=== PATIENT | male | born 1960 | race Caucasian/White ===

== ENCOUNTER 2018-06-29 10:58 | Emergency (ER) | payer OTHER ==
--- NOTE | 2018-06-29 12:02 | RAD REPORT ---
EXAM DESCRIPTION: CT - Head Brain Wo Cont - 06/29/2018 11:54 am CLINICAL HISTORY: Confused;Headache COMPARISON: No comparisons TECHNIQUE: All CT scans are performed using dose optimization technique as appropriate and may inclu de automated exposure control or mA/KV adjustment according to patient size. FINDINGS: No intracranial hemorrhage, hydrocephalus or extra-axial fluid collection.No areas of brai n edema or evidence of midline shift. The paranasal sinuses and mastoids are clear except for a small amount hyperdense material in the inf erior left maxillary antrum. The calvarium is intact. IMPRESSION: No acute intracranial abnormality.
[2018-06-29 12:36] LABS: Absolute Lymphocytes (CBC) 0.9 K/uL (0.7-4.9); Absolute Monocytes 0.4 K/uL (0.1-1.3); Absolute Neutrophil 7.6 K/uL (1.8-8.0); Basophils % 0.7 % (0-1.3); Eosinophils % 1.6 % (0-4.4); Hematocrit 53.7 % (39.6-49.0); Lymphocytes % 10.2 % (15.3-44.8); MCH 25.3 pg (27.0-35.0); MCV 75.6 fL (80-100); MPV 8.5 fL (7.6-11.3); Monocytes % 4.8 % (3.3-12.3)
[2018-06-29 12:37] LABS: Protime INR 1.22
--- NOTE | 2018-06-29 12:47 | RAD REPORT ---
EXAM DESCRIPTION: RAD - Chest Single View - 06/29/2018 12:25 pm CLINICAL HISTORY: COUGH Chest pain. COMPARISON: ABDOMEN 1 VIEW KUB dated 02/17/2015 FINDINGS: Portable technique limits examination quality. The lungs are grossly clear. The heart is normal in size. No displaced fractures. IMPRESSION: No acute intrathoracic process suspected.
[2018-06-29 12:55] LABS: ALT/SGPT 31 U/L (12-78); AST/SGOT 22 U/L (15-37); Albumin 3.4 g/dL (3.4-5.0); Alkaline Phosphatase 191 U/L (45-117); BUN Blood Urea Nitrogen 11 mg/dL (7-18); Bicarbonate 28 mmol/L (21-32); Bilirubin Direct 0.2 mg/dL (0-0.2); Bilirubin Total 0.8 mg/dL (0.2-1.0); Glucose Level 93 mg/dL (74-106); Magnesium 2.4 mg/dL (1.8-2.4); NT PRO-BNP 16 pg/mL (<125); Protein, Total 6.9 g/dL (6.4-8.2); Sodium Level 140 mmol/L (136-145); Troponin (Emerg Dept Use Only) < 0.02 ng/mL (0.0-0.045)
[2018-06-29] MEDS ORDERED: ASPIRIN 81 MG CHEWABLE TABLET ONE (13:18)
[2018-06-29 13:50] LABS: Barbiturates NEGATIVE (NEGATIVE); Benzodiazepines NEGATIVE (NEGATIVE); Cocaine NEGATIVE (NEGATIVE); METHAMPHETAM NEGATIVE (NEGATIVE); Methadone NEGATIVE (NEGATIVE); Opiates NEGATIVE (NEGATIVE); Phencyclidine NEGATIVE (NEGATIVE); THC Cannibis NEGATIVE (NEGATIVE)
--- NOTE | 2018-06-29 14:11 | ER ---
Nurse's Notes [facility] Name: Amadeo Simpson Age: 58 yrs Sex: Male : 1960 Arrival Date: 06/29/2018 Time: 11:01 Bed 20 Private MD: Jayme Dunham B Diagnosis: Paresthesia of skin;Weakness;Headache Presentation: 06/29 11:08 Presenting complaint: Patient states: Reports intermittent Right arm pain after arm sg wrestling several months ago, reports having elevated RBC's, pt states that he is unable to finish his thoughts and pt family member states that this has just been getting worse. These symptoms have started months ago, was evaluated by his PCP and told that his blood is thick and that it is concerning so he was referred to a administrative operations coordinator but has not been able to schedule the appointment yet. Transition of care: patient was not received from another setting of care. Onset of symptoms was June 29, 2018. Risk Assessment: Do you want to hurt yourself or someone else? Patient reports no desire to harm self or others. Initial Sepsis Screen: Does the patient meet any 2 criteria? No. Patient's initial sepsis screen is negative. Does the patient have a suspected source of infection? No. Patient's initial sepsis screen is negative. Care prior to arrival: None. 11:08 Method Of Arrival: Ambulatory sg 11:08 Acuity: WAI 3 sg Historical: - Allergies: 11:11 No Known Allergies; sg - Home Meds: 11:11 None [Active]; sg - PMHx: 11:11 Hiatal Hernia; sg - PSHx: 11:11 Appendectomy; Tonsillectomy; sg - Immunization history:: Adult Immunizations unknown. - Social history:: Smoking status: Patient/guardian denies using tobacco. - Ebola Screening: : Patient negative for fever greater than or equal to 101.5 degrees Fahrenheit, and additional compatible Ebola Virus Disease symptoms Patient denies exposure to infectious person Patient denies travel to an Ebola-affected area in the 21 days before illness onset No symptoms or risks identified at this time. Screenin:48 Abuse screen: Denies threats or abuse. Nutritional screening: No deficits noted. em Tuberculosis screening: No symptoms or risk factors identified. Fall Risk None identified. Assessment: 11:48 General: Appears in no apparent distress. comfortable, Behavior is calm, cooperative. em Pain: Complains of pain in behind left eye Pain currently is 4 out of 10 on a pain scale. Pain began 3-4 weeks. Neuro: Level of Consciousness is awake, alert, obeys commands, Oriented to person, place, time, situation, Special Machine Stitcher are equal bilaterally Moves all extremities. Gait is steady, Speech with expressive aphasia noted, Facial droop on right, Numbness in right hand. Cardiovascular: Denies chest pain, Heart tones S1 S2 present Capillary refill < 3 seconds Patient's skin is warm and dry. Respiratory: Airway is patent Respiratory effort is even, unlabored, Respiratory pattern is regular, symmetrical, Breath sounds are clear bilaterally. GI: Abdomen is flat, Patient currently denies nausea, vomiting. : No signs and/or symptoms were reported regarding the genitourinary system. EENT: No signs and/or symptoms were reported regarding the EENT system. Derm: Skin is intact, Skin is pink, warm \T\ dry. Musculoskeletal: Capillary refill < 3 seconds, Range of motion: intact in all extremities. 12:00 Reassessment: Patient appears in no apparent distress at this time. I agree with above iw assessment by Urbano Ivan LVN. 12:40 Reassessment: Patient appears in no apparent distress at this time. Patient and/or em family updated on plan of care and expected duration. Pain level reassessed. Patient is alert, oriented x 3, equal unlabored respirations, skin warm/dry/pink. 13:30 Reassessment: Patient appears in no apparent distress at this time. Patient and/or em family updated on plan of care and expected duration. Pain level reassessed. Patient is alert, oriented x 3, equal unlabored respirations, skin warm/dry/pink. pt ambulated to the restroom for urine specimen with steady gate, denies pain. 14:17 Reassessment: Patient appears in no apparent distress at this time. Patient and/or em family updated on plan of care and expected duration. Pain level reassessed. Patient is alert, oriented x 3, equal unlabored respirations, skin warm/dry/pink. Vital Signs: 11:12 BP 152 / 92; Pulse 67; Resp 17; Temp 98.2; Pulse Ox 99% on R/A; Weight 79.38 kg; Height sg 5 ft. 10 in. (177.80 cm) (R); Pain 4/10; 12:16 BP 133 / 86; Pulse 57; Resp 16; Pulse Ox 95% on R/A; Pain 0/10; em 13:32 BP 131 / 85; Pulse 61; Resp 16; Pulse Ox 98% on R/A; Pain 0/10; em 14:17 BP 139 / 83; Pulse 60; Resp 18; Pulse Ox 98% on R/A; mh5 11:12 Body Mass Index 25.11 (79.38 kg, 177.80 cm) ED Course: 11:01 Patient arrived in ED. mr 11:01 Jayme Dunham MD is Private Physician. mr 11:11 Triage completed. sg 11:11 Arm band placed on. EKG completed in triage. Results shown to MD. sg 11:15 Tiffanie Deal NP is PHCP. rh1 11:15 Hardik Dumont MD is Attending Physician. rh1 11:23 Urbano Ivan LVN is Primary Nurse. em 11:48 Patient has correct armband on for positive identification. Placed in gown. Bed in low em position. Call light in reach. Side rails up X2. Adult w/ patient. 11:54 CT Head Brain wo Cont In Process Unspecified. EDMS 12:15 Initial lab(s) drawn, by me, sent to lab. Inserted saline lock: 20 gauge in right em forearm, using aseptic technique. Blood collected. 12:25 X-ray completed. Portable x-ray completed in exam room. Patient tolerated procedure tm4 well. 12:25 XRAY Chest (1 view) In Process Unspecified. EDMS 14:09 Jayme Dunham MD is Referral Physician. rh1 14:10 Devin Sahu MD is Referral Physician. rh1 14:10 Bakari Denise MD is Referral Physician. rh1 14:26 No provider procedures requiring assistance completed. IV discontinued, intact, em bleeding controlled, No redness/swelling at site. Pressure dressing applied. Administered Medications: 13:15 Drug: Aspirin Chewable Tablet 324 mg Route: PO; em 13:30 Follow up: Response: No adverse reaction em Outcome: 14:10 Discharge ordered by MD. rh1 14:26 Discharged to home ambulatory, with family. em 14:26 Condition: good 14:26 Discharge instructions given to patient, family, Instructed on discharge instructions, follow up and referral plans. Demonstrated understanding of instructions, follow-up care. 14:27 Patient left the ED. em Signatures: Dispatcher [employer] Brian Gallardo, JOHN LOPEZ Eliza Yung Tracy tm4 Urbano Ivan, FSR FSR em Lynne Lal RN RN iw Jones, Rachel, NP ENTRY LEVEL ASSISTANT MANAGER [facility] [place], [place] [id number] Corrections: (The following items were deleted from the chart) 12:57 11:48 Neuro: Level of Consciousness is awake, alert, obeys commands, Oriented to em person, place, time, situation, Special Machine Stitcher are equal bilaterally Moves all extremities. Gait is steady, Facial droop on right, Numbness in right hand em
--- NOTE | 2018-06-29 14:11 | EDPHYS ---
Physician Documentation [facility] Name: Amadeo Simpson Age: 58 yrs Sex: Male : 1960 Arrival Date: 06/29/2018 Time: 11:01 Bed 20 Private MD: Jayme Dunham B ED Physician Hardik Dumont HPI: 06/29 11:15 This 58 yrs old Male presents to ER via Ambulatory with complaints of rh1 Confusion, Memory Loss, Arm Pain. 11:15 The patient's problem is reported as altered mental status, decreased responsiveness, rh1 paresthesias, in right upper extremity, weakness, in the right upper extremity. Onset: The symptoms/episode began/occurred this morning, at 06:00. Duration: The episodes are intermittent. Context: symptoms became apparent upon waking, occurred at home. The symptoms are alleviated by nothing. The symptoms are aggravated by nothing. Associated signs and symptoms: Pertinent positives: confusion, headache, numbness, weakness, Pertinent negatives: abdominal pain, agitation, ataxia, blurred vision, chest pain, diaphoresis, diarrhea, dizziness, lightheadedness, nausea, seizure, shortness of breath, tingling, vertigo, vomiting. Severity of symptoms: At their worst the symptoms were moderate in the emergency department the symptoms have resolved. The patient has experienced similar episodes in the past. The patient has been recently seen by a physician: 1 week(s) ago. He awoke this am at 0600 with right arm numbness and weakness. 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 He reports similar symptoms ongoing for the past 3 months. He arm wrestled another man 3 months ago, and immediately afterward had numbness and pain in the arm. With onset of symptoms several months ago, he was seen by his PCP, per had thorough "stroke" examination in the office, didn't see any evidence of stroke at the time, and they thought symptoms were possibly due to a pinched nerve. Hx of hemochromatosis, and recently referred to Dr. Cummings for possible polycythemia.. Historical: - Allergies: 11:11 No Known Allergies; sg - Home Meds: 11:11 None [Active]; sg - PMHx: 11:11 Hiatal Hernia; sg - PSHx: 11:11 Appendectomy; Tonsillectomy; sg - Immunization history:: Adult Immunizations unknown. - Social history:: Smoking status: Patient/guardian denies using tobacco. - Ebola Screening: : Patient negative for fever greater than or equal to 101.5 degrees Fahrenheit, and additional compatible Ebola Virus Disease symptoms Patient denies exposure to infectious person Patient denies travel to an Ebola-affected area in the 21 days before illness onset No symptoms or risks identified at this time. ROS: 11:15 Constitutional: Negative for fever, chills rh1 11:15 Eyes: Negative for acute changes, reports difficulty vision in December and see by opthamology, given eye drops. 11:15 ENT: Positive for nasal discharge, sinus congestion. 11:15 Neck: Negative for pain with movement, pain at rest. 11:15 Cardiovascular: Negative for chest pain, edema, palpitations. 11:15 Respiratory: Negative for cough, shortness of breath, wheezing. 11:15 Abdomen/GI: Negative for abdominal pain, nausea, vomiting, and diarrhea. 11:15 Back: Negative for decreased range of motion, pain at rest, pain with movement, radiated pain. 11:15 MS/extremity: Positive for decreased range of motion, paresthesias, Negative for swelling, tenderness, tingling. 11:15 Skin: Negative for diaphoresis, discoloration, pallor, rash. 11:15 Neuro: Positive for altered mental status, headache, numbness, weakness, Negative for dizziness, gait disturbance. Exam: 11:15 Radiologist reports: no acute findings rh1 11:15 Constitutional: This is a well developed, well nourished patient who is awake, alert, and in no acute distress. 11:15 Neck: Trachea midline, and no cervical lymphadenopathy. Supple, full range of motion without nuchal rigidity. No Meningismus. Chest/axilla: Normal chest wall appearance and motion. Nontender with no deformity. No lesions are appreciated. Cardiovascular: Regular rate and rhythm with a normal S1 and S2. No gallops, murmurs, or rubs. No JVD. No pulse deficits. Respiratory: Lungs have equal breath sounds bilaterally, clear to auscultation. No rales, rhonchi or wheezes noted. No increased work of breathing. Abdomen/GI: Soft, non-tender, with normal bowel sounds. No distension. No guarding or rebound. No evidence of tenderness throughout. Back: No spinal tenderness. No costovertebral tenderness. Full range of motion. Skin: Warm, dry with normal turgor. Normal color with no rashes, no lesions, and no evidence of cellulitis. MS/ Extremity: Pulses equal, no cyanosis. Neurovascular intact. Full, normal range of motion. 11:15 Eyes: Periorbital structures: appear normal, no cellulitis, no erythema, no swelling, Pupils: no acute changes, normal size, normal reaction to light, equal, right pupil is approximately 3 mm(s), left pupil is approximately 3 mm(s), Extraocular movements: intact throughout, Nystagmus: is not appreciated. 11:15 ENT: External ear(s): are unremarkable, no pain with movement, Ear canal(s): are normal, clear, no cerumen impaction, no erythema, no foreign body, no purulent discharge, no swelling, TM's: are normal, no evidence of bulging, no dullness, no erythema, no fluid levels, no hemotympanum, no rupture, normal bony landmarks, Nose: is normal, no drainage, no edema, no erythema, Mouth: is normal, no lip abnormalities, no mucosal abnormalities, Posterior pharynx: is normal, airway is patent, no erythema, no exudate, no peritonsilar mass, no pooling of secretions, no swelling, normal tonsil apperance, normal sized tonsils, normal uvula appearance, normal uvula size. 11:15 Neuro: Orientation: is normal, to person, place \\T\\ time. Mentation: is normal, slow to respond, intermittently slow to initiate thoughts throughout examination, Memory: is normal, Cranial nerves: visual jaquez are intact. extraocular movements are intact, Facial palsy and sensory deficits are absent. right nasolabial fold asymmetrical with comparison to left, symmetrical pucker. Nystagmus is absent. Speech is clear and appropriate. Gag reflex present. Tongue strength is normal, deviation is absent. Cerebellar function: Romberg testing is negative, normal finger to nose testing, heel to blas testing is normal, Motor: is normal, moves all fours, strength is 5/5 in all extremities, Sensation: is normal, no obvious gross deficits, numbness, is not appreciated, tingling, is not appreciated, denies any sensory deficits at this time, Gait: is steady, at a normal pace, without difficulty, seizure activity, is not displayed by the patient. Vital Signs: 11:12 BP 152 / 92; Pulse 67; Resp 17; Temp 98.2; Pulse Ox 99% on R/A; Weight 79.38 kg; Height sg 5 ft. 10 in. (177.80 cm) (R); Pain 4/10; 12:16 BP 133 / 86; Pulse 57; Resp 16; Pulse Ox 95% on R/A; Pain 0/10; em 13:32 BP 131 / 85; Pulse 61; Resp 16; Pulse Ox 98% on R/A; Pain 0/10; em 14:17 BP 139 / 83; Pulse 60; Resp 18; Pulse Ox 98% on R/A; mh5 11:12 Body Mass Index 25.11 (79.38 kg, 177.80 cm) sg MDM: 11:15 Patient medically screened. rh1 14:08 Data reviewed: vital signs, nurses notes, lab test result(s), EKG, radiologic studies, rh1 CT scan, I have discussed the patient's presentation/case with the attending Emergency Department Physician; and as a result, I will discharge patient. Data interpreted: Pulse oximetry: on room air is 98 %. Interpretation: normal. Counseling: I had a detailed discussion with the patient and/or guardian regarding: the historical points, exam findings, and any diagnostic results supporting the discharge/admit diagnosis, lab results, radiology results, the need for outpatient follow up, a family practitioner, a neurologist, to return to the emergency department if symptoms worsen or persist or if there are any questions or concerns that arise at home. 14:08 Special discussion: Based on the history and exam findings, there is no indication for rh1 further emergent testing or inpatient evaluation. I discussed with the patient/guardian the need to see the neurologist for further evaluation of the symptoms. 14:08 ED course: We discussed the intermittent symptoms of difficulty forming thoughts, right rh1 nasolabial fold flattening, and right arm numbness/weakness are concerning for neurologic pathology, including TIA. Given the onset of his symptoms at 0600 today and resolution upon arrival, he is not candidate for TPA. We do not have neurology instructional specialist today/tomorrow, or MRI capability, and for further neurological evaluation would require transfer to [place]. He is not interested in transfer today. He would prefer to follow up with neurology. Given names today, recommend daily aspirin, and urgent follow up. We discussed if his symptoms return, to return to the ER immediately for evaluation.. 06/29 11:35 Order name: Basic Metabolic Panel; Complete Time: 13:02 06/29 11:35 Order name: CBC with Diff; Complete Time: 12:46 06/29 11:35 Order name: LFT's; Complete Time: 13:02 06/29 11:35 Order name: Magnesium; Complete Time: 13:02 06/29 11:35 Order name: NT PRO-BNP; Complete Time: 13:02 06/29 11:35 Order name: PT-INR; Complete Time: 12:46 06/29 11:35 Order name: Troponin (emerg Dept Use Only); Complete Time: 13:02 06/29 11:35 Order name: XRAY Chest (1 view); Complete Time: 12:49 06/29 11:35 Order name: EKG; Complete Time: 11:36 06/29 11:35 Order name: Cardiac monitoring; Complete Time: 12:15 06/29 11:35 Order name: EKG - Nurse/Tech; Complete Time: 12:15 06/29 11:35 Order name: CT Head Brain wo Cont; Complete Time: 12:08 06/29 13:02 Order name: UDS; Complete Time: 14:08 06/29 11:35 Order name: IV Saline Lock; Complete Time: 12:15 06/29 11:35 Order name: Labs collected and sent; Complete Time: 12:15 06/29 11:35 Order name: O2 Per Protocol; Complete Time: 12:15 06/29 11:35 Order name: O2 Sat Monitoring; Complete Time: 12:15 06/29 13:02 Order name: Urine Dipstick-Ancillary (obtain specimen); Complete Time: 13:30 rh Administered Medications: 13:15 Drug: Aspirin Chewable Tablet 324 mg Route: PO; em 13:30 Follow up: Response: No adverse reaction em Disposition: 18:33 Co-signature as Attending Physician, Hardik Dumont MD. Disposition: 06/29/18 14:10 Discharged to Home. Impression: Paresthesia of skin, Weakness, Headache. - Condition is Stable. - Discharge Instructions: Paresthesia, Stroke Prevention, Transient Ischemic Attack, Weakness, Aspirin and Your Heart. - Medication Reconciliation Form, Thank You Letter, Antibiotic Education, Prescription Opioid Use form. - Follow up: Jayme Dunham MD; When: 1 - 2 days; Reason: Recheck today's complaints, Continuance of care, Re-evaluation by your physician. Follow up: Emergency Department; When: As needed; Reason: Fever > 102 F, If symptoms return, Trouble breathing, Worsening of condition. Follow up: Devin Sahu MD; When: 1 - 2 days; Reason: Further diagnostic work-up, Recheck today's complaints, Continuance of care. Follow up: Bakari Denise MD; When: 1 - 2 days; Reason: Further diagnostic work-up, Recheck today's complaints, Continuance of care. - Problem is new. - Symptoms have improved. - Notes: 1. Follow up with neurology as discussed.

2. If your symptoms return, return to ER immediately for evaluation. Signatures: Dispatcher [employer] Brian Gallardo RN RN sg Urbano Ivan, ATTACHE ATTACHE em Tiffanie Deal, HAM CURER HAM CURER rh1 Hardik Dumont MD MD gs Corrections: (The following items were deleted from the chart) 12:53 11:15 He awoke this am at 0600 with right arm numbness and weakness. 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 He arm wrestled another man 3 months ago, and immediately afterward had numbness and pain in the arm. With onset of symptoms several months ago, he was seen by his PCP, per had thorough "stroke" examination in the office, didn't see any evidence of stroke at the time, and they thought symptoms were possibly due to a pinched nerve. Hx of hemochromatosis, and recently referred to Dr. Cummings for possible polycythemia.. rh1 14:27 14:10 06/29/2018 14:10 Discharged to Home. Impression: Paresthesia of skin; Weakness; em Headache. Condition is Stable. Forms are Medication Reconciliation Form, Thank You Letter, Antibiotic Education, Prescription Opioid Use. Follow up: Jayme Dunham; When: 1 - 2 days; Reason: Recheck today's complaints, Continuance of care, Re-evaluation by your physician. Follow up: Emergency Department; When: As needed; Reason: Fever > 102 F, If symptoms return, Trouble breathing, Worsening of condition. Follow up: Devin Sahu; When: 1 - 2 days; Reason: Further diagnostic work-up, Recheck today's complaints, Continuance of care. Follow up: Bakari Denise; When: 1 - 2 days; Reason: Further diagnostic work-up, Recheck today's complaints, Continuance of care. Problem is new. Symptoms have improved. rh1 14:55 14:08 Special discussion: Based on the history and exam findings, there is no white hospital indication for further emergent testing or inpatient evaluation. I discussed with the patient/guardian the need to see the neurologist for further evaluation of the symptoms. rh1
--- NOTE | 2018-06-30 06:47 | EKG ---
Test Date: 2018-06-29 Test Time: 11:42:36 Head Of Quality: EDDIE MEASUREMENT RESULTS: Intervals: Rate: 60 HI: 150 QRSD: 90 QT: 398 QTc: 398 Mcdonald: P: 64 HI: 150 QRS: 45 T: 54 INTERPRETIVE STATEMENTS: Normal sinus rhythm Cannot rule out Anterior infarct, age undetermined Abnormal ECG Compared to ECG 03/16/2003 16:21:00 Possible myocardial infarct finding now present Sinus bradycardia no longer present Electronically Signed On 06-30-18 06:46:45 CDT by Elian Ardon
== END 2018-06-29 14:27 | disposition home or self-care (01) ==
LOC: ER 10:58
DX: R51 Headache (principal); R53.1 Weakness
CPT/HCPCS: 36415; 70450; 71045; 80048; 80076; 80307; 83735; 83880; 84484; 85025; 85610; 93005; 99284